=== PATIENT | male | born 1980 | race Caucasian/White ===

== ENCOUNTER 2016-09-23 23:19 | Inpatient (IN) | payer MEDICAID ==
[~2016-09-23] VITALS: Ht 170.2 cm; Wt 70.8 kg
[~2016-09-23 23:19] MED LIST: ALPR0.25 PO; DIVA500T2 PO; LORA2TAB95 PO; QUET200T PO
[2016-09-23] MEDS ORDERED: NALOXONE PREFILLED SYRINGE 2 MG/2 ML SYRINGE ONE (23:25)
[2016-09-23] MEDS ORDERED: NALOXONE HCL 0.4 MG/ML AMPUL ONE (23:27)
[2016-09-23] MEDS ORDERED: IV NS 0.9% 500 ML BAG IV ONE (23:30)
[2016-09-23] MEDS ORDERED: NALOXONE HCL 0.4 MG/ML AMPUL IV ONE (23:30)
[2016-09-23] MEDS ORDERED: IV NS 0.9% 500 ML IV ONE (23:40)
[2016-09-23] MEDS ORDERED: IV SET PRIMARY 1 EA INFUS.SET MC ONE (23:40)
[2016-09-23 23:46] LABS: EOSINOPHILS # (AUTO) 0.1 /CMM (0.0-0.7); EOSINOPHILS % (AUTO) 1.5 % (0.0-6.0); HEMATOCRIT 30 % (39-51); HEMOGLOBIN 9.9 g/dL (13.5-17.5); LYMPHOCYTES # (AUTO) 0.7 /CMM (0.8-4.8); MEAN CORPUSCULAR HEMOGLOBIN 28 PG (26.0-33.0); MEAN CORPUSCULAR HGB CONC 33 g/dl (31.0-36.0); MEAN CORPUSCULAR VOLUME 85 fL (80-96); MONOCYTES # (AUTO) 0.3 /CMM (0.1-1.30); MONOCYTES % (AUTO) 3.2 % (2.0-12.0); NEUTROPHILS # (AUTO) 6.9 /CMM (1.8-8.9); NEUTROPHILS % (AUTO) 86.3 % (43.0-81.0); PLATELET COUNT (AUTO) 229 /CMM (150-450); RDW COEFFICIENT OF VARIATION 13.5 (11.5-15.0); RED BLOOD CELL COUNT(AUTO) 3.56 MIL/uL (4.5-6.0)
[2016-09-23] MEDS ORDERED: IV SET PRIMARY PUMP SET 1 EA INFUS.SET MC ONE (23:53)
[2016-09-23] MEDS ORDERED: PROPOFOL 100 ML IV ONE (23:53)
--- NOTE | 2016-09-23 23:53 | NUR ---
DR. DHILLON AT THE BEDSIDE, NO GAG REFLEX NOTED.
[2016-09-23 23:56] LABS: CALCIUM, SERUM 8.3 mg/dL (8.5-10.1); CREATININE 1.6 mg/dL (0.6-1.3)
--- NOTE | 2016-09-23 23:57 | NUR ---
TIME OUT DONE.
--- NOTE | 2016-09-23 23:58 | NUR ---
BAGGING IN PROGRESS BY RT.
--- NOTE | 2016-09-23 23:58 | NUR ---
10MG ETOMIDATE GIVEN IVP
--- NOTE | 2016-09-23 23:59 | NUR ---
150 MG SUCCS GIVEN VAI 18G LFA AND FLUSHED WITH 10ML NS.
[2016-09-24] VITALS (34 sets, daily range): BP systolic 109–135; BP diastolic 58–80
--- NOTE | 2016-09-24 | NUR ---
PT WAS INTUBATED WITH 7.5 ET TUBE AT 22 @ THE LIP. BILATERAL RHONCHI BREATH SOUNDS. SX SMALL AMOUNT OF WHITE SECRETIONS. VENT SETTINGS PER MD ARE AC 12, 550, 50% +5. ALARMS ARE AUDIBLE. AMBU BAG BY BEDSIDE. WILL CONT TO MONITOR PT. Addendum: 09/24/16 at 0122 by ELIDA KITCHEN RT Amended: Links added.
--- NOTE | 2016-09-24 | NUR ---
PT INTUBATED BY DR DHILLON. BAGGING IN PROCESS. CO2 CHANGE NOTED, 7.5 AT THE LIP. EQUAL BREATH SOUNDS NOTED BY DR. DHILLON.
[2016-09-24 00:01] LABS: ALBUMIN 3.5 g/dL (3.4-5.0); BILIRUBIN,DIRECT 0.1 mg/dL (0.0-0.2); BILIRUBIN,TOTAL 0.4 mg/dL (0.2-1.0); SALICYLATE 2.1 mg/dL (2.8-20.0); TOTAL PROTEIN, SERUM 6.5 g/dL (6.4-8.2)
[2016-09-24] MEDS ORDERED: ACTIVATED CHARCOAL 25 GM/120 ML TUBE ONE (00:11)
[2016-09-24 00:12] LABS: THYROID STIMULATING HORMONE 0.542 uIU/mL (0.358-3.74)
--- NOTE | 2016-09-24 00:12 | NUR ---
14FR OGT INSERTED ALONG THE ETT. THE correct positioning varified by aspiration, auscultation and x-ray.
--- NOTE | 2016-09-24 00:14 | NUR ---
CALLING RADIOLOGY RE: CXR
--- NOTE | 2016-09-24 00:15 | NUR ---
RT AT THE BEDSIDE. SPUTUM CULTURE OBTAINED.
[2016-09-24 00:23] LABS: APPEARANCE,URINE CLEAR (CLEAR); BILIRUBIN,URINE 1+ (NEGATIVE); BLOOD, URINE NEGATIVE Ery/uL (NEGATIVE); COLOR,URINE YELLOW (YELLOW); KETONES,URINE NEGATIVE (NEGATIVE); LEUKOCYTE ESTERASE ,URINE NEGATIVE (NEGATIVE); NITRITE, URINE NEGATIVE (NEGATIVE); PROTEIN,URINE 2+ mg/dl (NEGATIVE); UGLUCOSE NEGATIVE (NEGATIVE)
[2016-09-24 00:24] LABS: PHENCYCLIDINE SCREEN,URINE NEGATIVE (NEGATIVE)
[2016-09-24 00:25] LABS: CANNABINOID, URINE POSITIVE (NEGATIVE)
[2016-09-24 00:30] LABS: ADD URINE CULTURE NO; BACTERIA,URINE None seen /HPF (None Seen); MUCUS,URINE Few /LPF (None Seen); RBC,URINE 0-2 /HPF (0-2); SQUAMOUS EPITHELIAL CELL,UR Rare /HPF (None Seen); WBC,URINE 0-2 /HPF (0-3)
[2016-09-24] MEDS ORDERED: NALOXONE HCL 0.4 MG/ML AMPUL IV ONE (00:30)
[2016-09-24] MEDS ORDERED: SUCCINYLCHOLINE CHLORIDE 20 MG/ML VIAL IV ONE (00:30)
[2016-09-24] MEDS ORDERED: ACTIVATED CHARCOAL 25 GM/120 ML TUBE PO ONE (00:30)
[2016-09-24] MEDS ORDERED: ETOMIDATE 2 MG/ML VIAL IV ONE (00:30)
[2016-09-24] MEDS ORDERED: PROPOFOL 100 ML IV ONE (00:30)
[2016-09-24 00:41] LABS: ABG OXYGEN SATURATION 88.7 % (92.0-98.5); ABG PCO2 42.3 mmHg (35.0-45.0); ABG PH 7.313 (7.350-7.450); ABG PO2 63.7 mmHg (75.0-100.0); ABG TOTAL HEMOGLOBIN 10.9 G/dL (13.5-18.0); AaDO2 245.2 mmHg; COHb 0.8 % (0.5-1.5); MetHb 0.6 % (0.0-1.5); O2Hb 87.5 % (94.0-97.0); PEEP,BG 5 cm H2O; SITE, ABG Right Radial; VENT MODE, BG AC 12; VT, ABG 550 mL
--- NOTE | 2016-09-24 00:50 | NUR ---
PER MD ORDER AFTER SEEING ABG RESULTS MD WANTED RATE AT 14 FROM 12 AND FIO2 TO 80% FROM 50%. WILL CONT TO MONITOR. Addendum: 09/24/16 at 0122 by ELIDA KITCHEN RT Amended: Links added.
--- NOTE | 2016-09-24 01:01 | NUR ---
PT LEFT FOR CT VIA [facility] WITH RICA CHILDRESS AND RT.
[2016-09-24] MEDS ORDERED: IV NS 0.9% 1,000 ML IV PRN (02:00)
[2016-09-24] MEDS ORDERED: ONDANSETRON HCL/PF 4 MG/2 ML VIAL IVP PRN (02:00)
[2016-09-24] MEDS ORDERED: POTASSIUM CHLORIDE 20 MEQ POWDER PACKET NG ONE (02:00)
[2016-09-24] MEDS ORDERED: ACETAMINOPHEN 650 MG/SUPP.RECT RC PRN (02:00)
[2016-09-24] MEDS ORDERED: ACETAMINOPHEN 325 MG TABLET PO PRN (02:00)
[2016-09-24] MEDS ORDERED: POTASSIUM CHLORIDE 20 MEQ POWDER PACKET ONE (02:32)
[2016-09-24] MEDS ORDERED: IV SET PRIMARY PUMP SET 1 EA INFUS.SET MC ONE ×2 (02:32→18:09)
[2016-09-24] MEDS ORDERED: IV NS 0.9% 1,000 ML ONE (02:32)
[2016-09-24] MEDS: PROPOFOL 100 ML IV PRN ×2 (02:55→20:08)
--- NOTE | 2016-09-24 03:21 | NUR ---
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 ADMISSION . RECEIVED THE PT FROM ER VIA [facility].PT DIAGNOSIS RESPIRATORY FAILURE ORALLY INTUBATED. SEDATED WITH DIPRIVAN. ETT7.5,LIP 25CMS,AC 14.TV550,FIO2 80%, PEEP 5. SAT 98%. NO ACUTE DISTRESS NOTED. MENDER HAND SHOWING NSR. IV RT HAND 18G, IVF NS 100ML/H, DIPRIVAN 2MCG/KG/MIN. FC PATENT. URINE DRAINING. BRENDA SOFT WRIST RESTRAINT CHECKED AND RELEASED. NO INJURY OR REDNESS NOTED.
--- NOTE | 2016-09-24 04:03 | NUR ---
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 ABDOMEN SURGICAL LORENE INTACT. .
[2016-09-24 05:04] LABS: CALCIUM, SERUM 8.2 mg/dL (8.5-10.1); CREATININE 1.4 mg/dL (0.6-1.3); MAGNESIUM 1.7 mg/dL (1.8-2.4); PHOSPHORUS 4.1 mg/dL (2.5-4.9); POTASSIUM 3.7 mmol/L (3.5-5.1)
--- NOTE | 2016-09-24 06:40 | NUR ---
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 pt tolerated same vent settings. sat 99. no acute distress noted, playground monitor showing nsr. ogt intact, clamped. renetta soft wrist restraint checked and released, no injury or redness noted. fc patent, urine draining.hob elevated. turn and reposition q2h. ivf ns 100ml/h. diprivan 2mcg/kg/min. will continue to monitor vitals.
--- NOTE | 2016-09-24 07:47 | NUR ---
RT PATIENT REC'D ORALLY INTUBATED ON [facility] VENT WITH ORDERED SETTINGS SET PER . VENT ALARMS CHECKED + AUDIBLE. B/S DIM. MATUTE BAG AT HOB. Addendum: 09/24/16 at 0816 by PAULO TOPETE RT Amended: Links added.
[2016-09-24] MEDS: PANTOPRAZOLE 40 MG VIAL IV SCH (08:11)
[2016-09-24 08:15] LABS: BASOPHILS % (AUTO) 0.4 % (0.0-2.0); EOSINOPHILS # (AUTO) 0.1 /CMM (0.0-0.7); HEMATOCRIT 29 % (39-51); HEMOGLOBIN 9.4 g/dL (13.5-17.5); LYMPHOCYTES # (AUTO) 0.7 /CMM (0.8-4.8); MEAN CORPUSCULAR HEMOGLOBIN 28 PG (26.0-33.0); MEAN CORPUSCULAR HGB CONC 33 g/dl (31.0-36.0); MEAN CORPUSCULAR VOLUME 85 fL (80-96); MONOCYTES # (AUTO) 0.3 /CMM (0.1-1.30); MONOCYTES % (AUTO) 6.1 % (2.0-12.0); NEUTROPHILS # (AUTO) 4.4 /CMM (1.8-8.9); NEUTROPHILS % (AUTO) 79.5 % (43.0-81.0); PLATELET COUNT (AUTO) 192 /CMM (150-450); RDW COEFFICIENT OF VARIATION 13.5 (11.5-15.0); WHITE BLOOD COUNT (AUTO) 5.6 K/uL (4.3-11.0)
[2016-09-24 08:30] LABS: ABG BASE EXCESS -3.7 mmol/L; ABG OXYGEN SATURATION 98.1 % (92.0-98.5); ABG PCO2 39.3 mmHg (35.0-45.0); ABG PH 7.356 (7.350-7.450); ABG PO2 258.7 mmHg (75.0-100.0); ABG TOTAL HEMOGLOBIN 10.4 G/dL (13.5-18.0); AaDO2 53.6 mmHg; COHb 0.3 % (0.5-1.5); O2Hb 96.8 % (94.0-97.0); SITE, ABG Right Radial
--- NOTE | 2016-09-24 09:53 | NUR ---
WOUND CARE CONSULT: PT PRESENTS WITH INTACT SKIN AND HEALED INCISION TO ABDOMEN WITH LORENE. PT ON [employer] COMFORT GEL MATTRESS. PT TO BE TURNED AND REPOSITIONED EVERY 2 HRS PT CONDITION PERMITS, HEELS FLOATED. PT INTUBATED AT THIS TIME. ALL SKIN PROTECTION MEASURES DISCUSSED WITH NURSING STAFF. IN AGREEMENT WITH PLAN OF CARE. Addendum: 09/24/16 at 0954 by TONI ROACH Amended: Links added. Addendum: 09/24/16 at 0955 by TONI ROACH EULA SCORE IS 17.
--- NOTE | 2016-09-24 10:52 | NUR ---
Social service consult requested by CAMILLE Arthur for family contact information. Per H&P report by BRIANNA Boyd, Pt. is a 36-year-old male patient who was brought by the EMS to the emergency department due to altered mental status. Per machine maintenance mechanic report, a bystander called 911 after the patient was found on the bus stop lying on the ground altered. According to the ED physician; on assessment the patient was nonverbal, pupils are pinpoint, with a respiratory rate of 8 and no gag reflex. The patient was subsequently intubated for definitive airway management. No meaningful history was obtained secondary to the patient's current mental status; however, surgical yarelis were noted on the patient's abdomen on assessment. It seemed like the patient has a history of laparotomy; the wound is clean and yarelis are intact with no signs of infection. CINDY met with pt. bedside, however pt. is intubated and SW was unable to get any information from pt. CINDY and RICA Washington looked through pt's belongings. CINDY found pt's wallet and [place] ID. CINDY also found a few numbers in pt's wallet, and phone number to [facility] . CINDY contacted the following phone number , Roni answered and informed CINDY he does not know the pt. CINDY also called [facility] and spoke to Michelle who informed SW she does not have him as a past client or current client. CINDY called missing persons and spoke to Detective Vail. No missing persons has been filed on pt. and according to detective Vail pt. has been stopped by the police in the past. SW to assess pt. once he is extubated.
[2016-09-24] MEDS ORDERED: Magnesium 1GM/D5W 100ML PREMIX PIGGYBACK IV ONE (12:30)
[2016-09-24] MEDS ORDERED: SECONDARY IV SET 1 EA INFUS.SET MC ONE (12:43)
[2016-09-24] MEDS: Magnesium 1GM/D5W 100ML PREMIX 100 ML IV SCH ×2 (12:48→15:36)
[2016-09-24] MEDS: IV 1/2NS 1000 ML 1,000 ML IV PRN ×2 (12:49→21:23)
--- NOTE | 2016-09-24 19:30 | NUR ---
RN INITIAL NOTES RECEIVED PT LIGHTLY ASLEEP ON BED BUT EASILY AROUSABLE TO NAME AND TOUCH DESPITE ON SEDATION DIPRIVAN 3MCG/KG/MIN. ON VENT, ETT 7.5/23@LIP, AC14, TV550, 40% FIO2, PEEP5, SATURATING WELL, NO S/S OF RESP DISTRESS. CURRENTLY SR ON THE MONITOR, HR 60-70'S. OGT IS CLAMPED. DENSON CATH INTACT. LEFT AC 20G, RAC 20G, AND RIGHT WRIST 18G WITH 1/2NS @ 125MLS/HR, ALL FLUSHED AND PATENT, NO S/S OF INFILTRATION/INFECTION, DRESSINGS CDI. BILATERAL SOFT WRIST RESTRAINTS IN PLACE. PATIENT REQUESTED TO WRITE ON PAPER: [phone] TO CALL BUT REFUSED TO GIVE A NAME; ASKED FOR FOOD; ASKED FOR VENT TO BE TAKEN OFF; ASKED FOR HIS PSYCH MEDS; AND THAT HE CAN'T REST WHEN HE'S AWAKE; AMONG OTHER THINGS. WILL INCREASE DIPRIVAN DRIP RATE TO PROVIDE ENOUGH SEDATION. BED LOW AND LOCKED, SIDERAILS UP, CALL LIGHT WITHIN REACH. WILL MONITOR
[2016-09-25] VITALS (26 sets, daily range): BP systolic 102–134; BP diastolic 22–79
--- NOTE | 2016-09-25 00:30 | NUR ---
RN NOTES TALKED TO PATIENT'S MOM ELISABET [phone] & [phone] TO NOTIFY HER OF HER SON'S CURRENT CONDITION. PER MOM, PATIENT WAS TAKEN FROM HOME VIA AMBULANCE FOR BIPOLAR/DEPRESSION TO GO TO A PSYCHIATRIC/MENTAL FACILITY BUT WAS SENT TO [facility] INSTEAD. MOM WILL CALL AGAIN IN AM FOR FURTHER UPDATES
[2016-09-25] MEDS ORDERED: IV SET PRIMARY PUMP SET 1 EA INFUS.SET MC ONE (03:59)
[2016-09-25] MEDS: IV 1/2NS 1000 ML 1,000 ML IV PRN ×2 (04:20→15:00)
[2016-09-25] MEDS: PROPOFOL 100 ML IV PRN (04:20)
[2016-09-25 04:49] LABS: EOSINOPHILS # (AUTO) 0.1 /CMM (0.0-0.7); EOSINOPHILS % (AUTO) 0.8 % (0.0-6.0); HEMATOCRIT 33 % (39-51); HEMOGLOBIN 10.9 g/dL (13.5-17.5); LYMPHOCYTES # (AUTO) 0.7 /CMM (0.8-4.8); LYMPHOCYTES % (AUTO) 7.8 % (20.0-44.0); MEAN CORPUSCULAR HEMOGLOBIN 28 PG (26.0-33.0); MEAN CORPUSCULAR HGB CONC 33 g/dl (31.0-36.0); MEAN CORPUSCULAR VOLUME 85 fL (80-96); MONOCYTES # (AUTO) 0.4 /CMM (0.1-1.30); MONOCYTES % (AUTO) 4.7 % (2.0-12.0); NEUTROPHILS # (AUTO) 7.9 /CMM (1.8-8.9); NEUTROPHILS % (AUTO) 86.7 % (43.0-81.0); PLATELET COUNT (AUTO) 212 /CMM (150-450); RDW COEFFICIENT OF VARIATION 13.4 (11.5-15.0); WHITE BLOOD COUNT (AUTO) 9.1 K/uL (4.3-11.0)
[2016-09-25 05:13] LABS: CALCIUM, SERUM 8.2 mg/dL (8.5-10.1); CREATININE 1.4 mg/dL (0.6-1.3); MAGNESIUM 1.9 mg/dL (1.8-2.4); PHOSPHORUS 3.5 mg/dL (2.5-4.9); POTASSIUM 3.6 mmol/L (3.5-5.1)
--- NOTE | 2016-09-25 06:30 | NUR ---
RN CLOSING NOTES PT REMAINS STABLE OF THE MOMENT. AM CARE PROVIDED. WILL ENDORSE CONTINUITY OF CARE TO AM RN
--- NOTE | 2016-09-25 07:30 | NUR ---
ICU/RN: PT RESTING COMFORTABLY IN BED, EYES CLOSED, MILDLY SEDATED ON DIPRIVAN 25MCG/MIN, BREATHING EVEN AND UNLABORED ON CURRENT VENT SETTINGS; AIRWAY CLEARED OF SECRETION, GAG REFLEX PRESENT. IVF INFUSING WELL. FC DRAINING WELL TO GRAVITY. WILL CONT TO MONITOR PT
[2016-09-25] MEDS ORDERED: DC PROPOFOL WHEN EXTUBATED XX PRN (08:00)
[2016-09-25] MEDS: PANTOPRAZOLE 40 MG VIAL IV SCH (08:16)
--- NOTE | 2016-09-25 08:30 | NUR ---
ICU/RN: PT OFF SEDATION FOR WEANING TRIAL. PT A&OX3, ABLE TO MOVE ALL EXTREMITIES; COMMUNICATES THROUGH WRITING. PT EXPRESSES DESIRE TO EAT. EDUCATED ON POC. PT COMPLIANT AND AGREEABLE TO PLAN. PT DENIES SI, PER PT "I DID NOT OD. I PASSED OUT BECAUSE I HAVENT SLEPT IN 3 DAYS. I WASNT IN A MANIC STATE. I WAS BORED AND PARTYING WITH GIRLS. I ALWAYS DO WEED. I WANT TO GO HOME AFTER IM EXTUBATED."
[2016-09-25 09:14] LABS: ABG BASE EXCESS -5.4 mmol/L; ABG OXYGEN SATURATION 97.9 % (92.0-98.5); ABG PCO2 30.2 mmHg (35.0-45.0); ABG PH 7.402 (7.350-7.450); ABG PO2 152.3 mmHg (75.0-100.0); ABG TOTAL HEMOGLOBIN 10.8 G/dL (13.5-18.0); AaDO2 98.2 mmHg; COHb 0.3 % (0.5-1.5); O2Hb 96.6 % (94.0-97.0); PEEP,BG 5 cm H2O; SITE, ABG Right Radial; VENT MODE, BG SIMV 4 / PS 12; VT, ABG 550 mL
--- NOTE | 2016-09-25 09:25 | NUR ---
RT PT AWAKE AND ALERT, PT EXTUBATED PER DR. GOODWIN ORDERS. PT PLACED ON 2L NASAL CANNULA TOLERATING WELL. EQUAL BILATERAL BREATHE SOUNDS AND CHEST RISE. NO SIGNS OF RESPIRATORY DISTRESS NOTED. WILL CONTINUE TO MONITOR. Addendum: 09/25/16 at 1843 by JOHNATHAN CANTOR RT Amended: Links added.
--- NOTE | 2016-09-25 09:30 | NUR ---
ICU/RN: PT S/P EXTUBATION, LUNG SOUNDS CLEAR AND EQUAL, PT WITH GAG REFLEX, NO DISTRESS NOTED. PLACED ON O2 4L/MIN VIA NC. WILL TITRATE TO MAINTAIN SPO2 >92%. EDUCATED PT, COMPLIANT WITH POC.
--- NOTE | 2016-09-25 10:58 | NUR ---
CINDY consult requested by ICU CROW Arthur for drug overdose. Pt. was extubated this morning. Pt. is a 36 year old male who was brought in by EMS to [facility] ED due to altered mental status. Per paramedics, a bystander called 911 after they found the pt. on the bus stop lying on the ground altered. CINDY met with pt. bedside. Pt. is A&O x 3. Pt. seemed a bit confused when CINDY informed him that he was found on the street by a bus stop, altered and was brought in by ambulance. Pt. thought he tripped and fell in his house and was brought to ED by his family. Pt. has no recollection of what happened to him prior to being admitted to [facility]. Pt. resides with his brother and parents at [address] [place] [address] [place] [id number]. Pt. is single and states he had a former fiance but now has three to four girlfriends. Pt. has been in skilled nursing for three months 2 to 3 years ago for vandalism. Pt. states he makes money where ever he can get money. 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 Pt. has had one psychiatric hospitalization in the past at [facility]. Pt. currently is not seeing a psychiatrist. Pt. has psychiatric history of Bipolar, Major Depressive Disorder and Anxiety. Pt's current medications include Depakote, Klonopin, Ativan, Seroquel and Remeron. However, pt. states he has not been medication compliant. Pt. denies suicidal/homicidal ideations and visual/auditory hallucinations at this time. Pt. states he consumes alcohol about 3 to 4 times per year. Pt. has experimented with drugs about 10 to 15 times. Pt. has used Crack, Cocaine, Crystal meth, and has smoked Heroin once. Pt. is a smoker and smokes 10 to 15 cigarettes per day. CINDY informed pt. a psychiatrist will be visiting with him today. ICNDY encouraged pt. to speak with the psychiatrist.
--- NOTE | 2016-09-25 13:00 | NUR ---
ICU/RN: PT INCREASINGLY ANXIOUS, AGITATED, PT OFF PSYCH MEDS SINCE ADMISSION. MAKING REPEATED PHONE CALLS TO RANDOM NUMBERS USING HOSPITAL PHONE. EDUCATED ON RELAXATION TECHNIQUES,PASSIVE TO EDUCATION. BRIANNA STOCK NOTIFIED. INFORMED PT S/P EXTUBATION, TOLERATING RA WELL. NEW ORDERS FOR PRN ATIVAN AND PSYCH CONSULT NOTED, CARRIED OUT.
[2016-09-25] MEDS ORDERED: LORAZEPAM INJ 2 MG/ML VIAL IV PRN (13:30)
--- NOTE | 2016-09-25 16:00 | NUR ---
ICU/RN: MID-ABDOMINAL LORENE REMOVED ORDERED BY DAYAMI REED; CLEANSED WITH BETADINE, 20 LORENE COUNTED AND REMOVED. PT EDUCATED THROUGHOUT PROCEDURE AND TOLERATED WELL. NO S/S SWELLING, ERYTHEMA, DRAINAGE, BLEEDING NOTED.
--- NOTE | 2016-09-25 17:50 | NUR ---
MS RN NOTES REPORT RECEIVED AND PATIENT IN ROOM. NO SOB OR DISTRESS NOTED AT THIS TIME. PATIENT DENIES PAIN. PATIENT SEEMS A LITTLE AGITATED AND STATES HE MAY STILL WANT TO GO HOME TONIGHT. ATIVAN GIVEN IN ICU. PATIENT ORIENTED TO ROOM AND CALL LIGHT AND GIVEN A MEAL TRAY. VITALS TAKEN AND RECORDED. BED IN LOW POSITION, WILL CONTINUE TO MONITOR.
--- NOTE | 2016-09-25 17:55 | NUR ---
ICU/RN: PT TRANSFERRED TO [facility] IN STABLE CONDITION VIA WHEELCHAIR ACCOMPANIED BY RN. ALL PT BELONGINGS TRANSFERRED WITH PT. DENIES PAIN AND DISCOMFORT.
--- NOTE | 2016-09-25 19:08 | NUR ---
MS RN CLOSING NOTES NO SIGNIFICANT CHANGES IN PATIENT CONDITION THROUGHOUT THE SHIFT. NO SOB OR DISTRESS NOTED AT THIS TIME. PATIENT DENIES PAIN. BED IN A LOW POSITION, CALL LIGHT WITHIN PATIENT REACH. WILL ENDORSE FOR RAS.
--- NOTE | 2016-09-25 19:35 | NUR ---
MS RN NOTES PATIENT IS WANTING TO LEAVE AMA, STATES THAT HE IS FINE NOW AND NO LONGER NEEDS TO BE IN THE HOSPITAL. EXPLAINED TO THE PATIENT THE RISKS AND BENEFITS OF STAYING IN THE HOSPITAL VERSUS LEAVING, BUT PATIENT STILL WISHES TO LEAVE. AMA PAPER SIGNED. BELONGINGS ACCOUNTED FOR. PATIENT REFUSED DISCHARGE VITAL SIGNS OR PICTURES. IVS REMOVED, NO BLEEDING NOTED AT THE SITES. PATIENT IS STABLE AT THIS TIME. NO SOB OR DISTRESS, PATIENT DENIES PAIN. PATIENT IS WITH HIS MOTHER AND IS DISCHARGED WITH HER. EPIC MD DOCKERY INFORMED OF PATIENT AMA STATUS.
--- NOTE | 2016-09-25 19:51 | NUR ---
MS RN NOTES PATIENT LEFT THE FLOOR IN STABLE CONDITION WITH HIS MOTHER.
== END 2016-09-25 19:45 | disposition left against medical advice (07) | DRG 812 ==
LOC: ER 23:20 → ICU 09-24 01:34 → MEDSG2 09-25 17:34
PROVIDERS: ADMIT Nurse Practitioner Acute Care; ATTEND Nurse Practitioner Acute Care
DX: T50.991A Poisoning by other drugs, medicaments and biological substances, accidental (unintentional), initial encounter (principal); J96.00 Acute respiratory failure, unspecified whether with hypoxia or hypercapnia; N17.0 Acute kidney failure with tubular necrosis; R40.20 Unspecified coma; G92 Toxic encephalopathy; K92.2 Gastrointestinal hemorrhage, unspecified; E83.42 Hypomagnesemia; E87.6 Hypokalemia; E86.0 Dehydration; Z91.5 Personal history of self-harm; F31.64 Bipolar disorder, current episode mixed, severe, with psychotic features; Y92.89 Other specified places as the place of occurrence of the external cause; F11.10 Opioid abuse, uncomplicated; F12.10 Cannabis abuse, uncomplicated; F13.10 Sedative, hypnotic or anxiolytic abuse, uncomplicated; F10.10 Alcohol abuse, uncomplicated; Y90.2 Blood alcohol level of 40-59 mg/100 ml; Z98.890 Other specified postprocedural states; N18.9 Chronic kidney disease, unspecified; D50.0 Iron deficiency anemia secondary to blood loss (chronic)
CPT/HCPCS: 31720; 36415; 36600; 70450-TC; 71010-TC; 80048-TC; 80076-TC; 80305; 81000-TC; 82553-TC; 82803-TC; 83735-TC; 84100-TC; 84443-TC; 85025-TC; 87070-TC; 87081-TC; 94002-TC; 94003-TC; 94640-TC; 94760-TC; 94799-TC; 99082-TC; A4606; C9113; G0480; G6039-TC; J0330; J2060; J2310; J3475; J3490; J7030; J7040; Z7610

== ENCOUNTER 2016-12-04 19:41 | Emergency (ER) | payer MEDICAID ==
[~2016-12-04] VITALS: Ht 182.9 cm; Wt 81.6 kg
[2016-12-04 19:41] VITALS: BP 137/97
[2016-12-04] MEDS ORDERED: TDAP [DIPH/PERTUSSIS/TET] 0.5 ML VIAL IM ONE (20:00)
--- NOTE | 2016-12-04 20:01 | NUR ---
PT BECAME AGITATED AND AGRESSIVE WITH STAFF, THREATENING STAFF MEMBERS. PT STATED HE WANTED TO LEAVE AND WAS WALKED OUT FROM ER BY SECURITY. UNABLE TO PERFORM NURSING ASSESSMENT. PA AWARE.
== END 2016-12-04 20:12 | disposition left against medical advice (07) ==
LOC: ER 19:43
DX: R51 Headache (principal); G89.29 Other chronic pain; K50.90 Crohn's disease, unspecified, without complications; F41.9 Anxiety disorder, unspecified; S50.312A Abrasion of left elbow, initial encounter; Z98.890 Other specified postprocedural states; W01.0XXA Fall on same level from slipping, tripping and stumbling without subsequent striking against object, initial encounter; Y93.89 Activity, other specified; Y92.89 Other specified places as the place of occurrence of the external cause; Y99.9 Unspecified external cause status
CPT/HCPCS: 99283; A4606; Z7610

== ENCOUNTER 2019-05-01 10:15 | Emergency (ER) | payer MEDICAID, OTHER ==
[~2019-05-01] VITALS: Ht 172.7 cm; Wt 77.1 kg
--- NOTE | 2019-05-01 10:25 | NUR ---
ER PHLEB AT BEDSIDE FOR BLOOD DRAW.
[2019-05-01] MEDS ORDERED: LORAZEPAM INJ 2 MG/ML VIAL ONE ×2 (10:27→11:27)
[2019-05-01] MEDS ORDERED: diphenhydrAMINE HCL 50 MG/ML VIAL ONE (10:27)
[2019-05-01] MEDS ORDERED: HALOPERIDOL LACTATE INJ 5 MG/ML VIAL ONE ×3 (10:27→11:26)
--- NOTE | 2019-05-01 10:30 | NUR ---
Security called to assist clearing pt for weapons/contraband by utilizing hand held metal detector. [employer] at bedside. provided with Nusrat HANDY in direct line of sight
[2019-05-01] MEDS: LORAZEPAM INJ 2 MG/ML VIAL IM ONE (10:36)
[2019-05-01] MEDS: diphenhydrAMINE HCL 50 MG/ML VIAL IM ONE (10:37)
[2019-05-01] MEDS: HALOPERIDOL LACTATE INJ 5 MG/ML VIAL IM ONE ×3 (10:37→12:20)
[2019-05-01 10:45] LABS: BASOPHILS # (AUTO) 0.1 /CMM (0.0-0.2); BASOPHILS % (AUTO) 0.5 % (0.0-2.0); EOSINOPHILS % (AUTO) 1.4 % (0.0-6.0); HEMATOCRIT 40 % (39-51); HEMOGLOBIN 12.9 g/dL (13.5-17.5); LYMPHOCYTES # (AUTO) 1.5 /CMM (0.8-4.8); LYMPHOCYTES % (AUTO) 15.6 % (20.0-44.0); MEAN CORPUSCULAR HGB CONC 33 g/dl (31.0-36.0); MEAN CORPUSCULAR VOLUME 82 fL (80-96); MONOCYTES # (AUTO) 0.5 /CMM (0.1-1.30); MONOCYTES % (AUTO) 5.7 % (2.0-12.0); NEUTROPHILS # (AUTO) 7.3 /CMM (1.8-8.9); NEUTROPHILS % (AUTO) 76.8 % (43.0-81.0); PLATELET COUNT (AUTO) 376 /CMM (150-450); RED BLOOD CELL COUNT(AUTO) 4.83 MIL/uL (4.5-6.0); WHITE BLOOD COUNT (AUTO) 9.5 K/uL (4.3-11.0)
[2019-05-01 10:51] LABS: CARBON DIOXIDE 17 mmol/L (21-32); CHLORIDE 110 mmol/L (98-107); CREATININE 1.8 mg/dL (0.6-1.3); GLUCOSE 89 mg/dL (74-106); POTASSIUM 3.3 mmol/L (3.5-5.1); SODIUM SERUM 146 mmol/L (136-145); UREA NITROGEN, BLOOD 16 mg/dL (7-18)
--- NOTE | 2019-05-01 10:54 | NUR ---
URINE SPECIMEN COLLECTED AND SENT TO LAB.
[2019-05-01 10:57] LABS: ALANINE AMINOTRANSFERASE 28 U/L (12-78); ALBUMIN 3.7 g/dL (3.4-5.0); ALCOHOL, BLOOD < 3 mg/dL (0-0); ALKALINE PHOSPHATASE 121 U/L (46-116); ASPARTATE AMINOTRANSFERASE 17 U/L (15-37); BILIRUBIN,DIRECT 0.1 mg/dL (0.0-0.2); BILIRUBIN,TOTAL 0.4 mg/dL (0.2-1.0); TOTAL PROTEIN, SERUM 7.8 g/dL (6.4-8.2)
[2019-05-01 10:58] LABS: ACETAMINOPHEN 0 ug/ml (10-30); SALICYLATE 1.9 mg/dL (2.8-20.0)
--- NOTE | 2019-05-01 11:15 | NUR ---
No acute changes. Comfort and safety measures implemented. Sitter in direct line of sight. Sleeping Endorsed to Gardenia Petersen
[2019-05-01 11:22] LABS: BILIRUBIN,URINE SMALL (NEGATIVE); BLOOD, URINE Moderate Ery/uL (NEGATIVE); KETONES,URINE Negative (NEGATIVE); LEUKOCYTE ESTERASE ,URINE Negative (NEGATIVE); NITRITE, URINE Negative (NEGATIVE); PH,URINE 5.5 (5.0-8.0); PROTEIN,URINE 100 mg/dl (NEGATIVE); UGLUCOSE Negative (NEGATIVE); UROBILINOGEN,URINE 0.2 EU/dL (0.2)
[2019-05-01 11:23] LABS: APPEARANCE,URINE Slightly Cloudy (CLEAR); COLOR,URINE DARK YELLOW (YELLOW)
[2019-05-01 11:30] LABS: BACTERIA,URINE None seen /HPF (None Seen); SQUAMOUS EPITHELIAL CELL,UR Rare /HPF (None Seen)
[2019-05-01] MEDS: LORAZEPAM INJ 2 MG/ML VIAL IV ONE (12:20)
[2019-05-01] MEDS: IV NS 0.9% 1,000 ML BAG IV ONE ×2 (14:00→14:04)
[2019-05-01 14:53] LABS: CALCIUM, SERUM 7.7 mg/dL (8.5-10.1); CREATININE 1.4 mg/dL (0.6-1.3)
[2019-05-01 14:54] LABS: POTASSIUM 2.7 mmol/L (3.5-5.1)
[2019-05-01 15:00] VITALS: BP 129/75
[2019-05-01] MEDS ORDERED: POTASSIUM CHLORIDE 20 MEQ TAB.PRT.SR PO ONE (15:42)
[2019-05-01] MEDS: POTASSIUM CHLORIDE 20 MEQ TAB.PRT.SR PO ONE ×2 (15:51)
--- NOTE | 2019-05-01 15:52 | NUR ---
Patient discharged to home in stable condition. Written and verbal after care instructions given. Patient verbalizes understanding of instruction. IV removed. Catheter intact and site benign. Pressure and 4x4 applied to site. No bleeding noted.
== END 2019-05-01 15:52 ==
LOC: ER 10:22
DX: R45.1 Restlessness and agitation (principal); R45.6 Violent behavior; E87.2 Acidosis; N28.9 Disorder of kidney and ureter, unspecified; R31.29 Other microscopic hematuria; F41.9 Anxiety disorder, unspecified; F12.10 Cannabis abuse, uncomplicated; Z79.899 Other long term (current) drug therapy
CPT/HCPCS: 36415; 80048 ×2; 80076; 80305; 80307; 80329; 81001; 82550; 85025; 96372 ×4; 99284; G0480; J1200; J1630 ×3; J2060 ×2; J7030; 81000-TC